=== PATIENT | male | born 1935 | race Caucasian/White ===

== ENCOUNTER 2021-09-13 12:32 | Emergency (ER) | payer MEDICARE ==
[~2021-09-13] VITALS: Wt 58.1 kg
[~2021-09-13 12:32] MED LIST: ACCU-CHEK AVIV1 EACH MC; ALDACTONE25 MG PO; BUMETANIDE1 MG PO; CARVEDILOL12.5 MG PO; DILTIAZEM HCL120 MG PO; ELIQUIS5 M1 PO; HYDROCODONE-AC1 EAC1 PO; LASIX20 MG PO; METFORMIN XR500 MG PO; MISOPROSTOL100 MCG PO; OMEPRAZOLE MAGN20 MG PO; OXYGEN NAS; QUALITY CHOICE81 M1 PO; ROSUVASTATIN CA20 MG PO; SPIRIVA -- 3018 MCG INH; SUMATRIPTAN SUC25 M1 PO; TRELEGY ELLIPT1 EACH INH; VITAMIN D3125 MC1 PO
[2021-09-13 12:58] LABS: BASO % 0.4 % (0.0-1.0); EOS % 0.4 % (1.0-4.0); HEMATOCRIT 31.1 % (42.0-52.0); LYMPH # 0.5 10*3/uL (1.3-4.4); LYMPH % 10.1 % (27.0-41.0); MEAN CELL VOLUME 87.9 fl (80.0-94.0); MEAN CORPUSCULAR HGB 25.1 pg (27.0-31.0); MEAN CORPUSCULAR HGB CONC 28.6 g/dl (33.0-37.0); MONO # 0.4 10*3/uL (0.1-1.0); MONO % 8.7 % (3.0-9.0); PLATELET COUNT AUTOMATED 243 10*3/uL (130-400); RED BLOOD COUNT 3.54 10*6/uL (4.50-5.90); RED CELL DISTRI WIDTH 17.1 % (0-14.5)
[2021-09-13 13:11] LABS: ACT PARTIAL THROMBO TIME 31.4 SECONDS (20.0-32.1); INTERNATIONAL NORM RATIO 1.2 (2.0-3.5)
[2021-09-13 13:14] LABS: ALBUMIN 2.3 gm/dl (3.1-4.5); CREATININE 1.41 mg/dL (0.70-1.30); POTASSIUM 3.9 mmol/L (3.5-5.1); TOTAL PROTEIN 6.2 gm/dL (6.4-8.2)
[2021-09-13 14:59] LABS: BILIRUBIN Negative (Negative); BLOOD Negative (Negative); CLARITY Clear (Clear); COLOR Yellow (Yellow); GLUCOSE Negative (Negative); KETONE Negative (Negative); LEUKO ESTERASE Trace (Negative); NITRITE Negative (Negative)
[2021-09-13 15:33] LABS: BACTERIA TRACE; EPITHELIAL CELLS 21-30
== END 2021-09-13 17:17 ==
LOC: ED 12:32
PROVIDERS: Emergency Medicine
DX: R55 Syncope and collapse (principal); Z88.8 Allergy status to other drugs, medicaments and biological substances; Z79.899 Other long term (current) drug therapy; Z79.82 Long term (current) use of aspirin

== ENCOUNTER 2021-09-15 00:28 | Emergency (ER) | payer MEDICARE ==
[~2021-09-15] VITALS: Ht 167.6 cm; Wt 54.4 kg
[2021-09-15 01:00] LABS: BILIRUBIN Negative (Negative); BLOOD 3+ (Negative); CLARITY Clear (Clear); COLOR Red (Yellow); GLUCOSE Negative (Negative); KETONE Negative (Negative); LEUKO ESTERASE Trace (Negative); NITRITE Negative (Negative); PH 6.5 (4.5-8.0); SPECIFIC GRAVITY <= 1.005 (1.001-1.030); UROBILINOGEN 0.2 E.U./dl (0.0-1.0)
[2021-09-15 01:00] LABS: BASO % 0.8 % (0.0-1.0); HEMATOCRIT 31.2 % (42.0-52.0); LYMPH # 0.5 10*3/uL (1.3-4.4); LYMPH % 13.2 % (27.0-41.0); MEAN CELL VOLUME 88.6 fl (80.0-94.0); MEAN CORPUSCULAR HGB 24.7 pg (27.0-31.0); MEAN CORPUSCULAR HGB CONC 27.9 g/dl (33.0-37.0); MEAN PLATELET VOLUME 10.4 fl (9.6-12.3); MONO # 0.3 10*3/uL (0.1-1.0); MONO % 8.3 % (3.0-9.0); NEUT % 76.4 % (47.0-73.0); PLATELET COUNT AUTOMATED 254 10*3/uL (130-400); RED BLOOD COUNT 3.52 10*6/uL (4.50-5.90); RED CELL DISTRI WIDTH 17.5 % (0-14.5); WHITE BLOOD COUNT 3.9 10*3/uL (4.8-10.8)
[2021-09-15 01:17] LABS: RBC TNTC rbc/hpf (0-2)
[2021-09-15 01:17] LABS: ALBUMIN 2.3 gm/dl (3.1-4.5); ALKALINE PHOSPHATASE 59 U/L (45-117); BUN 40 mg/dl (7-24); CHLORIDE 99 mmol/L (98-107); CREATININE 1.28 mg/dL (0.70-1.30); POTASSIUM 3.9 mmol/L (3.5-5.1); SGOT/AST 19 IU/L (3-35); SGPT/ALT 8 U/L (12-78); SODIUM 139 mmol/L (136-145); TOTAL PROTEIN 6.1 gm/dL (6.4-8.2)
[2021-09-15 01:28] LABS: INTERNATIONAL NORM RATIO 1.1 (2.0-3.5)
== END 2021-09-15 04:20 | disposition short-term general hospital (02) ==
LOC: ED 00:28
PROVIDERS: Internal Medicine
DX: N17.9 Acute kidney failure, unspecified (principal); D72.819 Decreased white blood cell count, unspecified; D64.9 Anemia, unspecified; R31.0 Gross hematuria; E44.0 Moderate protein-calorie malnutrition; Z88.8 Allergy status to other drugs, medicaments and biological substances; Z79.899 Other long term (current) drug therapy; Z79.82 Long term (current) use of aspirin